=== PATIENT | male | born 1995 | race Caucasian/White ===

== ENCOUNTER 2023-12-22 15:41 | Outpatient (CLI) | payer OTHER, SELFPAY ==
--- OUTSIDE RECORDS SUMMARY | 2023-12-22 15:46 | XMS_ITS | Referral Summary ---
Author Organization [facility] Address [address] [place] [id number] Care Team Providers Care [place] Name Role Phone Elsy Ortega MD Primary Care Provider [phone]- [phone] Allergies Active Allergy Reactions Criticality Noted Date Comments Penicillins 04/22/2023 Medications No known medications Social History Tobacco Use Types Packs/Day Years Used Date Smoking Tobacco: Never Assessed Adolescent Education Answer Date Record ed Getting School Help Needed Not on file 04/22 Sex and Gender Information Value Date Recorded Sex Assigned at Not on file Gender Identity Not on file Sexual Orientation Not on file Last Filed Vital Signs Vital Sign Reading Time Taken Comments Blood Pressure 137/83 04/22/2023 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
--- OUTSIDE RECORDS SUMMARY | 2023-12-22 15:46 | XMS_ITS | Clinical Summary ---
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 Inhaled Oxygen Concentration - - Weight 106.1 kg (234 lb) 04/22/2023 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 Height - - Body Mass Index - - Plan of Treatment Health Maintenance Due Date Last Done Comments ADVANCE CARE PLANNING 1994 ANNUAL REVIEW OF HM ORDERS 1994 YEARLY PREVENTIVE VISIT 1994 HIV SCREENING 2009 HEPATITIS C SCREENING 2012 COVID-19 Vaccine ( season) 2022 10/25/2020, 08/17/2020 DTAP/TDAP/TD IMMUNIZATION (8 - Td or Tdap) 03/01/2023 03/01/2013, 08/15/2006, 10/09/1999, Additional history exists PHQ-2 (once per calendar year) 2023 INFLUENZA VACCINE (#1) 2024 1, 02/24/2020, 02/24/2020, Additional history exists MENINGITIS IMMUNIZATION Completed 03/01/2013 HEPATITIS B IMMUNIZATION Completed 014, 04/23/2013, 03/07/2013, Additional history exists IPV IMMUNIZATION Completed 12/10/2015, , 10/09/1999, Additional history exists HPV IMMUNIZATION Aged Out No longer e ligible based on patient's age to complete this topic Pneumococcal Vaccine: Pediatrics (0 to 5 Years) and At-Risk Patients (6 to 64 Years) Aged Out No longer eligible based on patient's age to complete this topic RSV MONOCLONAL ANTIBODY Aged Out No l onger eligible based on patient's age to complete this topic Care Teams Psychiatry Physician Relationship Specialty Start Date End Date Elsy Ortega MD [facility] [address] [place], [place] [id number] PCP - General Family Medicine 04/22/23
--- OUTSIDE RECORDS SUMMARY | 2023-12-22 15:46 | XMS_ITS | Continuity of Care Document ---
Author Name [facility] Organization [facility] Care Team Providers Care All Round Butcher Name Role Phone [facility] Unavailable Unavailable Problems Combined list of problems from Department of Defense and Veterans Affairs facilities. It does not include entries that were removed or entered in error. Problem Status Onset Date Problem Type Date of Resolution Comments Source ASSESSMENT, POST-DEPLOYMENT, DOCUMENTED ON [id number] Inactive 06/24/2019 Condition [facility] visit for: administrative purpose Inactive Condition [facility] Allergies, Adverse Reactions, Alerts Combined list of allergies from Department of Defense and Veterans Affairs facilities. It does not include entries that were removed or entered in error. Substance Category Reaction Severity Reaction type Status Date Reported Comments Source penicillins Propensity to adverse reactions to substance Rash or Itch Active 5 [facility] PENICILLINS {Cla } Drug allergy (disorder) Rash or Itch active 5 [facility] Immunizations Combined list of available immunizations from the Department of Defense and Veterans Affairs facilities. Immunization Series Date Given Administered By Site Reaction Lot Number CVX Code Drug Claims Examiner Status Comments Source influenza, injectable, quadrivalent- pf 2020 [id number] 150 GlaxoSmithKli ne complet ed influenza , injectabl e, quadrival ent-pf 03/22/21 Given Ambulat ory Pharmac y Influenza, injectable, quadrivalent, preservative free 1 2020 [id number] 150 SmithKline (SKB) complet ed Influenza , injectabl e, quadrival ent, preservat solomon free [facility] COVID Vaccine Moderna 2020 [id number] complet ed COVID Vaccine Moderna 10/25/20 Given Ambulat ory Pharmac y SARS-COV-2 (COVID-19) vaccine, mRNA, spike protein, LNP, preservative free, 100 mcg or 50 mcg dose 2 2020 [id number] 207 Moderna LetsWombat, Inc. (MOD) complet ed SARS-COV- 2 (COVID-19 ) vaccine, mRNA, spike protein, LNP, preservat solomon free, 100 mcg or 50 mcg dose DoD COVID Vaccine Moderna 2020 [id number] complet ed COVID Vaccine Moderna 08/17/20 Given Ambulat ory Pharmac y SARS-COV-2 (COVID-19) vaccine, mRNA, spike protein, LNP, preservative free, 100 mcg or 50 mcg dose 1 2020 [id number] 207 Moderna [employer]sWombat, Inc. (MOD) complet ed SARS-COV- 2 (COVID-19 ) vaccine, mRNA, spike protein, LNP, preservat solomon free, 100 mcg or 50 mcg dose DoD SARS-COV-2 (COVID-19) vaccine, mRNA, spike protein, LNP, preservative free, 100 mcg or 50 mcg dose 0 2020 207 () Not Given SARS-COV- 2 (COVID-19 ) vaccine, mRNA, spike protein, LNP, preservat solomon free, 100 mcg or 50 mcg dose DoD influenza virus vaccine, inactivated 2019 [id number] Seqirus complet ed influenza virus vaccine, inactivat ed 02/24/20 Given Ambulat ory Pharmac y Influenza, injectable, [place]in [place] Canine Kidney, quadrivalent with preservative 1 2019 [id number] 186 Seqirus (SEQ) comple t ed Influenza , injectabl e, [place]in [place] Canine Kidney, quadrival ent with preservat solomon DoD influenza, injectable, quadrivalent 2018 [id number] 158 Seqirus complet ed influenza , injectabl e, quadrival ent 04/04/19 Given Ambulat ory Pharmac y influenza, injectable, quadrivalent, contains preservative 7 2018 [id number] 158 Seqirus (SEQ) complet ed influenza , injectabl e, quadrival ent, contains preservat solomon DoD anthrax vaccine 2018 [id number] 24 Emergent Biosolutions complet ed anthrax vaccine 12/06/18 Given Ambulat ory Pharmac y anthrax vaccine 3 2018 [id number] 24 Emergent BioDefense Operations Adams (MIP) complet ed anthrax vaccine DoD influenza, injectable, quadrivalent- pf 2017 [id number] 150 CuriouslyKli mo complet ed influenza , injectabl e, quadrival ent-pf 03/19/18 Given Ambulat ory Pharmac y Influenza, injectable, quadrivalent, preservative free 1 2017 [id number] 150 SmithKline (SKB) complet ed Influenza , injectabl e, quadrival ent, preservat solomon free DoD typhoid Vi capsular polysaccharid e vac 2017 [id number] 101 sanofi pasteur complet ed typhoid Vi capsular polysacch aride vac 12/18/17 Given Ambulat ory Pharmac y yellow fever vaccine 2017 [id number] 37 sanofi pasteur complet ed yellow fever vaccine 12/18/17 Given Ambulat ory Pharmac y yellow fever vaccine 1 2017 [id number] 37 Sanofi Pasteur (PMC) complet ed yellow fever vaccine DoD typhoid Vi capsular polysaccharid e vaccine 2 2017 [id number] 101 Sanofi Pasteur (PMC) complet ed typhoid Vi capsular polysacch aride vaccine DoD influenza, injectable, quadrivalent 2016 [id number] 158 GlaxoSmithKli ne complet ed influenza , injectabl e, quadrival ent 04/02/17 Given Ambulat ory Pharmac y influenza, injectable, quadrivalent, contains preservative 5 2016 [id number] 158 SmithKline (SKB) complet ed influenza , injectabl e, quadrival ent, contains preservat solomon DoD influenza, seasonal, injectable-pf 2016 [id number] 140 Seqirus complet ed influenza , seasonal, injectabl e-pf 06/16/16 Given Ambulat ory Pharmac y Influenza, seasonal, injectable, preservative free 4 2016 [id number] 140 Seqirus (SEQ) comple t ed Influenza , seasonal, injectabl e, preservat solomon free DoD anthrax vaccine 2015 [id number] 24 Emergent Biosolutions complet ed anthrax vaccine 12/10/15 Given Ambulat ory Pharmac y poliovirus vaccine, inactivated 2015 [id number] 10 sanofi pasteur complet ed polioviru s vaccine, inactivat ed 12/10/15 Given Ambulat ory Pharmac y poliovirus vaccine, inactivated 2 2015 [id number] 10 Sanofi Pasteur (PMC) complet ed polioviru s vaccine, inactivat ed DoD anthrax vaccine 2 2015 [id number] 24 Emergent [employer] Adams ([facility]) complet ed anthrax vaccine DoD influenza, live, intranasal,qu adrivalent 2014 [id number] 149 Medimmune Inc comple t ed influenza , live, intranasa l,quadriv alent 03/10/15 Given Ambulat ory Pharmac y influenza, live, intranasal, quadrivalent 3 2014 [id number] 149 MODIZY.COMune, Inc. (MED) complet ed influenza , live, intranasa l, quadrival ent DoD typhoid Vi capsular polysaccharid e vac 2014 [id number] 101 sanofi pasteur complet ed typhoid Vi capsular polysacch aride vac 10/08/14 Given Ambulat ory Pharmac y anthrax vaccine 2014 [id number] 24 Emergent Biosolutions complet ed anthrax vaccine 10/08/14 Given Ambulat ory Pharmac y anthrax vaccine 1 2014 [id number] 24 Emergent [employer] Adams (MIP) complet ed anthrax vaccine DoD typhoid Vi capsular polysaccharid e vaccine 1 2014 [id number] 101 Sanofi Pasteur (PMC) complet ed typhoid Vi capsular polysacch aride vaccine DoD influenza, live, intranasal,qu adrivalent 2013 [id number] 149 Medimmune Inc comple t ed influenza , live, intranasa l,quadriv alent 02/06/14 Given Ambulat ory Pharmac y influenza, live, intranasal, quadrivalent 2 2013 [id number] 149 MedIWorld Reviewerune, Inc. (MED) complet ed influenza , live, intranasa l, quadrival ent DoD hepatitis A-hepatitis B vaccine 2013 [id number] 104 GlaxoSmithKli ne complet ed hepatitis A-hepatit is B vaccine 10/17/13 Given Ambulat ory Pharmac y hepatitis A and hepatitis B vaccine 3 2013 [id number] 104 [facility] (SKB) complet ed hepatitis A and hepatitis B vaccine DoD hepatitis A-hepatitis B vaccine 2012 [id number] 104 GlaxoSmithKli ne complet ed hepatitis A-hepatit is B vaccine 04/23/13 Given Ambulat ory Pharmac y measles/mumps /rubella virus vaccine 2012 [id number] 03 Merck & Company Inc complet ed measles/m umps/rube lla virus vaccine 04/23/13 Given Ambulat ory Pharmac y measles, mumps and rubella virus vaccine 2 2012 [id number] 03 Merck (MSD) complet ed measles, mumps and rubella virus vaccine DoD hepatitis A and hepatitis B vaccine 1 2012 [id number] 104 SmithKline (SKB) complet ed hepatitis A and hepatitis B vaccine DoD hepatitis A-hepatitis B vaccine 2012 [id number] 104 GlaxoSmithKli ne complet ed hepatitis A-hepatit is B vaccine 03/07/13 Given Ambulat ory Pharmac y measles/mumps /rubella virus vaccine 2012 [id number] 03 Merck & Company Inc complet ed measles/m umps/rube lla virus vaccine 03/07/13 Given Ambulat ory Pharmac y measles, mumps and rubella virus vaccine 1 2012 [id number] 03 Merck (MSD) complet ed measles, mumps and rubella virus vaccine DoD hepatitis A and hepatitis B vaccine 1 2012 [id number] 104 SmithKline (SKB) complet ed hepatitis A and hepatitis B vaccine DoD tuberculin purified protein derivative 2012 [id number] 96 [facility] complet ed tuberculi n purified protein derivativ e 03/01/13 Given Ambulat ory Pharmac y tetanus, diphtheria, acellular pertu is 2012 [id number] 115 GlaxoSmithKli mo complet ed tetanus, diphtheri a, acellular pertussis 03/01/13 Given Ambulat ory Pharmac y adenovirus vaccine, live 2012 [id number] 5 143 Teva Pharmaceutica complet ed adenoviru s vaccine, live 03/01/13 Given Ambulat ory Pharmac y influenza, seasonal, injectable-pf 2012 1342 [id number] 140 Novartis Pharmaceutica ls complet ed influenza , seasonal, injectabl e-pf 03/01/13 Given Ambulat ory Pharmac y meningococcal A,C,Y,W-135 (MCV4P) 2012 [id number] 114 sanofi pasteur complet ed meningoco ccal A,C,Y,W-1 35 (MCV4P) 03/01/13 Given Ambulat ory Pharmac y poliovirus vaccine, inactivated 2012 J1382 10 sanofi pasteur complet ed polioviru s vaccine, inactivat ed 03/01/13 Given Ambulat ory Pharmac y poliovirus vaccine, inactivated 1 2012 J1382 10 Sanofi Pasteur ([facility]) complet ed polioviru s vaccine, inactivat ed DoD meningococcal polysaccharid e (groups A, C, Y and W-135) diphtheria toxoid conjugate vaccine (MCV4P) 1 2012 [id number] 114 Sanofi Pasteur ([facility]) complet ed meningoco ccal polysacch aride (groups A, C, Y and W-135) diphtheri a toxoid conjugate vaccine (MCV4P) DoD tetanus toxoid, reduced diphtheria toxoid, and acellular pertu is vaccine, adsorbed 1 2012 [id number] 115 NeoPhotonics (SKB) complet ed tetanus toxoid, reduced diphtheri a toxoid, and acellular pertussis vaccine, adsorbed DoD Influenza, seasonal, injectable, preservative free 1 2012 1342 1P 140 Novartis Metaboli. (NOV) complet ed Influenza , seasonal, injectabl e, preservat solomon free DoD Adenovirus, type 4 and type 7, live, oral 1 2012 [id number] 5 143 Pinkdingo (BRR) complet ed Adenoviru s, type 4 and type 7, live, oral DoD mumps virus vaccine 0 2012 07 () Not Given mumps virus vaccine DoD varicella virus vaccine 0 2012 21 () Not Given varicella virus vaccine DoD Results Combined list of recent chemistry, hematology and other laboratory results from Department of Defense and Veterans Affairs, ranging from 15 months to all on record, depending upon the facility. Order Name Results Value Reference Range Date Interpretation Specimen Comments Source Infectio us Disease HIV-1/O/2 Non-Reac tive 1 (08/06/23 10:01 AM) 08/05 N Interpretiv e Data: INTERPRETAT ION: This method is a screening procedure for the detection of HIV p24 Antigen and Antibodies to HIV-1, including Group O, and/or HIV-2. NON-REACTIV E: HIV-1 antigen and HIV-1 / HIV-2 antibodies were not detected. No laboratory evidence of HIV infection. A negative test result does not exclude the possibility of exposure to or infection with HIV. HIV antibodies and/or p24 antigen may be undetectabl e in some stages of the infection and in some clinical conditions. If acute HIV infection is suspected, consider submitting another specimen to a reference laboratory for HIV-1 RNA. SCREEN REACTIVE - CONFIRMATIO N TO FOLLOW: Possible presence of HIV-1antibo dies, HIV-2 antibodies and/or HIV-1 p24 antigen. Specimen will reflex to the confirmatio n testing that fulfills the Center for Disease Control and Prevention' s HIV diagnostic algorithm. Refer to [facility] Lab Guide for additional information : [email or web address].[email or web address]/ [email or web address]/[email or web address]/EPIL ab/Pages/la b_guide.asp x Testing performed by Sania pineda. [facility] Miscella neo Sendouts Repository Sample Received (08/06/23 10:01 AM) 08/05 N Amb[facility] Pharmacy Encounters Combined list of: 1) Encounters from Department of Veterans Affairs facilities going back up to thelast 18 months. 2) Encounters from the Department of [facility] facilities going back up to 280 months. Location Location Details Encounter Type Encounter Number Reason For Visit Attending Provider ADM Date DC Date Status Disposition Source [facility]) TELE CONSULT [id number] Notes Entered by: VANESSA CARVER 31 May 2013 0757 ------- ------- ------- ------- -- VANESSA Mcneal 05/31 Referred for Appointment [facility]) [employer] [employer]([facility]) TELE CONSULT [id number] Notes Entered by: DEENA WEEKS 09 Aug 2013 1134 ------- ------- ------- ------- -- PRP ELLEN VILLAREAL 08/09 [employer] [employer]([facility]) [facility] [employer](Anna Marie chase New PHA Cell) OUTPATIENT [id number] Notes Entered by: NILESH LUCIO 23 Oct 2013 1421 ------- ------- ------- ------- -- PHA PART 1 [YELLOW ] NILESH LUCIO 10/23 Released w/o Limitations [employer](Lynn gonzales New PHA Cell) [facility](In and Out Nathalie Berg) TELE CONSULT [id number] Notes Entered by: ANASTASIA CASTRO 23 Oct 2013 1431 ------- ------- ------- ------- -- inpaige CAMPOS CONNIE K 10/23 [facility] Group(I n and Out Process ing [place]) [employer] [facility] [employer]([facility] Tm A-AD) OUTPATIENT [id number] JULIANA Barnhart 11/14 Released w/o Limitations [facility] Tm A-AD) [facility]) OUTPATIENT [id number] Notes Entered by: Roselyn HULL 23 Jan 2014 1427 ------- ------- ------- ------- -- MONO Morales am 01/23 Released w/o Limitations [facility]) [facility] Tm A-AD) OUTPATIENT [id number] sinus pressur e, sore throat, cough.. .....JULIANA Blanton 05/21 Released w/o Limitations [facility] Tm A-AD) [facility]) OUTPATIENT [id number] [facility]... .ACACIA Colin 09/26 Released w/o Limitations [facility]) [facility] Flight Medicine) OUTPATIENT [id number] Notes Entered by: VISHAL SUERO 08 Oct 2014 1004 ------- ------- ------- ------- -- VISHAL AJ 10/08 Released w/o Limitations [facility] Flight Medicin e) [facility]) OUTPATIENT [id number] Notes Entered by: Harjinder GELLER 02 Apr 2015 0741 ------- ------- ------- ------- -- PHA Part 1 (Red) SAM GELLER Ryanne 04/02 Released w/o Limitations [employer]([facility] New PHA Cell) [employer](Anna Marie [facility] Dply Hlth Assess) OUTPATIENT [id number] [facility] JANUSZ CATHERINE 06/23 Released w/o Limitations [employer]([facility] Dply Hlth Assess) [employer]([facility] Hearing Conservat ion) OUTPATIENT [id number] Notes Entered by: SERVANDO LINDSAY 20 Oct 2015 1440 ------- ------- ------- ------- -- Audiogr ANAMARIA Braswell 10/19 Released w/o Limitations [employer]([facility] Hearing Conserv ation) [employer]([facility] Dply Hlth Assess) OUTPATIENT [id number] [facility] URSULA SHELTON 12/08 Released w/o Limitations [employer]([facility] Dply Hlth Assess) [employer]([facility]) OUTPATIENT [id number] LULA FOLEY 12/18 Released w/o Limitations [employer] [facility]( [facility]) [employer](Bas e Operation s Medicine Cell) TELE CONSULT [id number] Notes Entered by: Priscilla JOHNS 26 Jan 2016 1201 ------- ------- ------- ------- -- Blackwell /Guard record review ROSA JOHNS 01/25 [employer](B ase Operati ons Medicin e Cell) [employer]([facility] lburt Hearing Conservat ion) OUTPATIENT [id number] Notes Entered by: Bowen BLANK 28 Jan 2016 1522 ------- ------- ------- ------- -- audiogr APOORVA Díaz 01/27 Released w/o Limitations [employer]([facility] Hearing Conserv ation) [employer](Bas e Operation s Medicine Cell) OUTPATIENT [id number] CHINO MEIER 02/25 Released w/o Limitations [employer](B ase Operati ons Medicin e Cell) [employer]([facility]) OUTPATIENT [id number] Notes Entered by: JULES DOBBINS 27 Feb 2016 0917 ------- ------- ------- ------- -- Lab results I_JEOVANNY VELARDE 02/26 Released w/o Limitations [employer]([facility] Flight Medicin e) [employer]([facility]) TELE CONSULT [id number] Notes Entered by: FAUSTO BAUTISTA 03 Mar 2016 0838 ------- ------- ------- ------- -- Lab results Dayan_JEOVANNY VELARDE 03/03 [employer]([facility] Flight Medicin e) [employer](Sub stance Abuse ([facility])) OUTPATIENT [id number] MARIAELENA pineda records review KADY PINO 12/29 Released w/o Limitations [employer](S ubstanc e Abuse ([facility]) ) [place] [address](AFN G 133 Med Sq-FM) OUTPATIENT [id number] Notes Entered by: NORA KRUEGER 28 Jun 2018 1218 ------- ------- ------- ------- -- LEFTY Jacinto 06/28 Released w/o Limitations [facility] [place] [address](A FNG 133 Med Sq-FM) [place] [address](AFN G 133 Med Sq-FM) OUTPATIENT [id number] Notes Entered by: DU FERNANDES 10 Jan 2019 0753 ------- ------- ------- ------- -- DHA1 CHAD LEI Ayala 01/10 Released w/o Limitations [facility] [place] [address](A FNG 133 Med Sq-FM) [facility] Facility OUTPATIENT [id number] Theater Provider 06/24 Released w/o Limitations [facility] [place] [place] [address](AFN G 133 Med Sq-FM) OUTPATIENT [id number] Notes Entered by: YOLANDE VEGA 06 Sep 2019 1031 ------- ------- ------- ------- -- Tri-Ser vice COLEMAN CHAD LEI Ayala 09/05 Released w/o Limitations [facility] [place] [address](A FNG 133 Med Sq-FM) [place] [address](AFN G 133 Med Sq-FM) OUTPATIENT [id number] Notes Entered by: DU FERNANDES 27 Nov 2019 1532 ------- ------- ------- ------- -- [facility], NOVEMBER 18 CHAD LEI Ayala 11/26 Released w/o Limitations [facility] [place] [address](A FNG 133 Med Sq-FM) [facility](Aud iology (Area B)) OUTPATIENT [id number] Notes Entered by: PHILIPPE HDZ 19 Jun 2020 1347 ------- ------- ------- ------- -- [facility] Record Review VISHAL SUH 06/19 Released w/o Limitations [facility](A udiolog y (Area B)) [place] [address](AFN G 133 Med Sq-FM) OUTPATIENT [id number] Notes Entered by: PATTY RICH 28 Jul 2021 0915 ------- ------- ------- ------- -- Tri-Ser vice COLEMAN NOEL TOLLIVER 07/28 Released w/o Limitations [facility] [place] [address](A FNG 133 Med Sq-FM) 8231R-[id number] MDG Outpatient [id number] MARIBEL CYRIRMA 08/05 Discharge Disposition: Home or Self Care 8231R-1 [id number] MDG 8231R-133 MDG Outside Documentat ion Only [id number] 09/04 Discharge Disposition: Home or Self Care 8231R-1 33 MDG Procedures Combined list of: 1) Procedures from Department of Veterans Affairs facilities going back up to thelast 18 months, not all VA non-surgical procedures are included; 2) All procedures from the Department of Defense facilities. Procedure Procedure Type Code Date Perfomer Comments Sourc e No data available for this section Ambulatory Pharmacy PSYCHIATRIC EVALUATION OF HOSPITAL RECORDS, OTHER PSYCHIATRIC REPORTS, PSYCHOMETRIC AND/OR PROJECTIVE TESTS, AND OTHER ACCUMULATED DATA FOR MEDICALDIAGNOSTIC PURPOSES 018 [facility] PSYCHIATRIC DIAGNOSTIC EVALUATION 014 [facility] TELE ASSESS & MGT SRV PROV QUAL NONPHYS HLTH CARE PRO TO EST PAT,PARENT,GUARD NOT ORIG REL ASSESS & MGT SRV PROV W/IN PREV 7 DAYS NOR LEAD ASSESS & MGT SRV/PX W/IN NXT 24 HR/SOON APT;5-10 MIN MED DIS 016 [facility] NEUROPSYCHOLOGICAL TESTING (EG, [place] CARD SORTING TEST), ADMINISTERED BY A COMPUTER, WITH QUALIFIED HEALTH ENTERPRISE INTEGRATION ARCHITECT INTERPRETATION AND REPORT 016 DoD PSYCHIATRIC EVALUATION OF HOSPITAL RECORDS, OTHER PSYCHIATRIC REPORTS, PSYCHOMETRIC AND/OR PROJECTIVE TESTS, AND OTHER ACCUMULATED DATA FOR MEDICALDIAGNOSTIC PURPOSES 016 [facility] NEUROPSYCHOLOGICAL TESTING (EG, [place] CARD SORTING TEST), ADMINISTERED BY A COMPUTER, WITH QUALIFIED HEALTH ENTERPRISE INTEGRATION ARCHITECT INTERPRETATION AND REPORT 015 DoD DISEASE MANAGEMENT PROGRAM; INITIAL ASSESSMENT AND INITIATION OF THE PROGRAM 014 [facility] THERAPEUTIC, PROPHYLACTIC, OR DIAGNOSTIC INJECTION (SPECIFY SUBSTANCE OR DRUG); SUBCUTANEOUS OR INTRAMUSCULAR 013 DoD Psychiatric Diagnostic Evaluation Review of Records and Reports Psychiatric Diagnostic Evaluation Review of Records and Reports [id number] KADY PINO [facility] Non-Physician Phone Call To Patient/Provider Brief (5-10min) Non-Physician Phone Call To Patient/Provider Brief (5-10min) [id number] JEOVANNY ROSSI [facility] Psychometric Neuropsych Testing Battery Admin By Computer Psychometric Neuropsych Testing Battery Admin By Computer [id number] LULA RON [facility] Psychiatric Diagnostic Evaluation Review of Records and Reports Psychiatric Diagnostic Evaluation Review of Records and Reports [id number] LILIANA AWAD [facility] Psychometric Neuropsych Testing Battery Admin By Computer Psychometric Neuropsych Testing Battery Admin By Computer [id number] ACACIA IYER [facility] Disease management program; initial a e ment and initiation of the program 014 ANASTASIA CASTRO [facility] Psychiatric Diagnostic Evaluation Psychiatric Diagnostic Evaluation [id number] CHRISTOPHER LENNON [facility] Psychologic Testing And Report Administered By Computer Psychologic Testing And Report Administered By Computer [id number] CHRISTOPHER LENNON [facility] Social History Combined list of available smoking, tobacco, and other social history from Department of Defense and Veterans Affairs facilities. Social History Type Response Date Comment Sourc e Male 08/06/2021 Ambulatory Pha rmacy Sexual Orientation Ambula tory Pharmacy Gender identity [facility] This section is an empty soc ial history section. [facility] Assessment and Plan Combined list of future care activities from Department of Defense and Veterans Affairs facilities (e.g., assessment and plan notes, appointments, orders, and referrals). Additional future care activities may be listed in the Plan of Care section. Result Assessment and Plan Date Source Assessment and Plan No data available for this section 12/22/2023 Ambulatory Pharmacy Functional Status Combined list of recent functional and cognitive assessments recorded at Department of Defense and Veterans Affairs (VA).VA Functional [place] Measurement (FIM) Scale: 1 = Total Assistance (Subject = 0% +), 2 = Maximal Assistance (Subject = 25% +), 3 = Moderate Assistance (Subject = 50% +), 4 = Minimal Assistance (Subject = 75% +), 5 = Supervision, 6 = Modified [place] (Device), 7 = Complete [place] (Timely, Safely). Assessment Date/Time Source Assessment Type Assessment Skill Assessment Score Assessment Details No data available for this section
--- NOTE | 2023-12-22 16:00 | CRLHL7_ITS ---
For Patients: As a result of the Century Cures Act, medical imaging exams and procedure reports are released immediately into your electronic medical record. You may view this report before your referring provider. If you have questions, please contact your health care provider. Indication: LOCALIZED SWELLING, MASS AND LUMP POST TRAUMA Technique: Cabrales scale and color doppler imaging of the left proximal calf soft tissues performed. Comparison: None Findings: Curvilinear collection of fluid located just beneath the skin measuring 5.2 x 0.4 x 4.3 cm. No suspicious vascularity or solid component. Impression: Small collection of subcutaneous fluid, likely blood products, measuring 5.2 x 0.4 x 4.3 cm. Dictated by Serg Herrera MD @ 12/23/2023 1:48:08 PM (Electronically Signed)
== END 2023-12-22 15:42 | disposition home or self-care (01) ==
LOC: US 15:44
PROVIDERS: PCP Emergency Medicine; Visit Provider Emergency Medicine
DX: R22.40 Localized swelling, mass and lump, unspecified lower limb (principal)
CPT/HCPCS: 76882

== ENCOUNTER 2024-12-09 19:07 | Emergency (ER) | payer OTHER, SELFPAY ==
--- OUTSIDE RECORDS SUMMARY | 2024-12-09 19:09 | XMS_ITS | Continuity of Care Document ---
Author Name [facility] Organization [facility] Care Team Providers Care Network Control Technician Name Role Phone [facility] Unavailable Unavailable Problems Combined list of problems from Department of Defense and Veterans Affairs facilities. It does not include entries that were removed or entered in error. Problem Status Onset Date Problem Type Date of Resolution Comments Source ASSESSMENT, POST-DEPLOYMENT, DOCUMENTED ON [id number] Inactive 06/24/2019 Condition [facility] visit for: administrative purpose Inactive Condition [facility] Allergies, Adverse Reactions, Alerts Combined list of allergies from Department of Defense and Veterans Affairs facilities. It does not include entries that were removed or entered in error. Substance Category Reaction Severity Reaction type Status Date Reported Comments Source penicillins Propensity to adverse reactions to substance Rash or Itch Active 5 Unknown Organizati on PENICILLINS {Cla } Drug allergy (disorder) Rash or Itch active 5 [employer] Immunizations Combined list of available immunizations from the Department of Defense and Veterans Affairs facilities. Immunization Series Date Given Administered By Site Reaction Lot Number CVX Code Drug Return To Service Inspector Status Comments Source influenza, injectable, quadrivalent- pf 2020 [id number] 150 GlaxoSmithKli ne complet ed influenza , injectabl e, quadrival ent-pf 03/22/21 Given Ambulat ory Pharmac y Influenza, injectable, quadrivalent, preservative free 1 2020 [id number] 150 SmithKline (SKB) complet ed Influenza , injectabl e, quadrival ent, preservat solomon free [facility] COVID Vaccine Moderna 2020 [id number] complet ed COVID Vaccine Moderna 10/25/20 Given Ambulat ory Pharmac y SARS-COV-2 (COVID-19) vaccine, mRNA, spike protein, LNP, preservative free, 100 mcg or 50 mcg dose 2 2020 [id number] 207 Moderna Funanga, Inc. (MOD) complet ed SARS-COV- 2 (COVID-19 ) vaccine, mRNA, spike protein, LNP, preservat solomon free, 100 mcg or 50 mcg dose DoD COVID Vaccine Moderna 2020 [id number] complet ed COVID Vaccine Moderna 08/17/20 Given Ambulat ory Pharmac y SARS-COV-2 (COVID-19) vaccine, mRNA, spike protein, LNP, preservative free, 100 mcg or 50 mcg dose 1 2020 [id number] 207 Moderna Funanga, Inc. (MOD) complet ed SARS-COV- 2 (COVID-19 [...] dose DoD influenza virus vaccine, inactivated 2019 [id number] Seqirus complet ed influenza virus vaccine, inactivat ed 02/24/20 Given Ambulat ory Pharmac y Influenza, injectable, Madin Dara Canine Kidney, quadrivalent with preservative 1 2019 [id number] Seqirus (SEQ) comple t ed Influenza , injectabl e, Madin Edgemont Canine Kidney, quadrival ent with preservat solomon DoD influenza, injectable, quadrivalent 2018 [id number] 158 Seqirus complet ed influenza , injectabl e, quadrival ent 04/04/19 Given Ambulat ory Pharmac y influenza, injectable, quadrivalent, contains preservative 7 2018 [id number] 158 Seqirus (SEQ) complet ed influenza , injectabl e, quadrival ent, contains preservat solomon DoD anthrax vaccine 2018 [id number] Emergent Biosolutions complet ed anthrax vaccine 12/06/18 Given Ambulat ory Pharmac y anthrax vaccine 3 2018 [id number] Emergent BioDefense Operations Duncan (MIP) complet ed anthrax vaccine DoD influenza, injectable, quadrivalent- pf 2017 [id number] 150 JellycoasterKli wy complet ed influenza , injectabl e, quadrival ent-pf 03/19/18 Given Ambulat ory Pharmac y Influenza, injectable, quadrivalent, preservative free 1 2017 [id number] 150 SmithKline (SKB) complet ed Influenza , injectabl e, quadrival ent, preservat solomon free DoD typhoid Vi capsular polysaccharid e vac 2017 [id number] sanofi pasteur complet ed typhoid Vi capsular polysacch aride vac 12/18/17 Given Ambulat ory Pharmac y yellow fever vaccine 2017 [id number] sanofi pasteur complet ed yellow fever vaccine 12/18/17 Given Ambulat ory Pharmac y yellow fever vaccine 1 2017 [id number] 37 Sanofi Pasteur (PMC) complet ed yellow fever vaccine DoD typhoid Vi capsular polysaccharid e vaccine 2 2017 [id number] 101 Sanofi Pasteur (PMC) complet ed typhoid Vi capsular polysacch aride vaccine DoD influenza, injectable, quadrivalent 2016 [id number] 158 GlaxoSmithKli ne complet ed influenza , injectabl e, quadrival ent 04/02/17 Given Ambulat ory Pharmac y influenza, injectable, quadrivalent, contains preservative 5 2016 [id number] 158 SmithKline (SKB) complet ed influenza , injectabl e, quadrival ent, contains preservat solomon DoD influenza, seasonal, injectable-pf 2016 [id number] 140 Seqirus complet ed influenza , seasonal, injectabl e-pf 06/16/16 Given Ambulat ory Pharmac y Influenza, seasonal, injectable, preservative free 4 2016 [id number] 140 Seqirus (SEQ) comple t ed Influenza , seasonal, injectabl e, preservat solomon free DoD anthrax vaccine 2015 [id number] 24 Emergent Biosolutions complet ed anthrax vaccine 12/10/15 Given Ambulat ory Pharmac y poliovirus vaccine, inactivated 2015 [id number] 10 sanofi pasteur complet ed polioviru s vaccine, inactivat ed 12/10/15 Given Ambulat ory Pharmac y poliovirus vaccine, inactivated 2 2015 [id number] 10 Sanofi Pasteur (PMC) complet ed polioviru s vaccine, inactivat ed DoD anthrax vaccine 2 2015 [id number] 24 Emergent [employer] Duncan ([facility]) complet ed anthrax vaccine DoD influenza, live, intranasal,qu adrivalent 2014 [id number] 149 Medimmune Inc comple t ed influenza , live, intranasa l,quadriv alent 03/10/15 Given Ambulat ory Pharmac y influenza, live, intranasal, quadrivalent 3 2014 [id number] 149 MedIAxiomaticsune, Inc. (MED) complet ed influenza , live, intranasa l, quadrival ent DoD typhoid Vi capsular polysaccharid e vac 2014 [id number] 101 sanofi pasteur complet ed typhoid Vi capsular polysacch aride vac 10/08/14 Given Ambulat ory Pharmac y anthrax vaccine 2014 [id number] 24 Emergent Biosolutions complet ed anthrax vaccine 10/08/14 Given Ambulat ory Pharmac y anthrax vaccine 1 2014 [id number] 24 Emergent [employer] Duncan ([facility]) complet ed anthrax vaccine DoD typhoid Vi capsular polysaccharid e vaccine 1 2014 [id number] 101 Sanofi Pasteur ([facility]) complet ed typhoid Vi capsular polysacch aride vaccine DoD influenza, live, intranasal,qu adrivalent 2013 [id number] 149 Medimmune Inc comple t ed influenza , live, intranasa l,quadriv alent 02/06/14 Given Ambulat ory Pharmac y influenza, live, intranasal, quadrivalent 2 2013 [id number] 149 MedIAxiomaticsune, Inc. (MED) complet ed influenza , live, intranasa l, quadrival ent DoD hepatitis A-hepatitis B vaccine 2013 [id number] 104 GlaxoSmithKli ne complet ed hepatitis A-hepatit is B vaccine 10/17/13 Given Ambulat ory Pharmac y hepatitis A and hepatitis B vaccine 3 2013 [id number] 104 [facility] (SKB) complet ed hepatitis A and hepatitis B vaccine DoD hepatitis A-hepatitis B vaccine 2012 [id number] 104 GlaxoSmithKli ne complet ed hepatitis A-hepatit is B vaccine 04/23/13 Given Ambulat ory Pharmac y measles/mumps /rubella virus vaccine 2012 [id number] 03 Merck & Company Inc complet ed measles/m umps/rube lla virus vaccine 04/23/13 Given Ambulat ory Pharmac y measles, mumps and rubella virus vaccine 2 2012 [id number] 03 Merck (MSD) complet ed measles, mumps and rubella virus vaccine DoD hepatitis A and hepatitis B vaccine 1 2012 [id number] 104 SmithKline (SKB) complet ed hepatitis A and hepatitis B vaccine DoD hepatitis A-hepatitis B vaccine 2012 [id number] 104 GlaxoSmithKli ne complet ed hepatitis A-hepatit is B vaccine 03/07/13 Given Ambulat ory Pharmac y measles/mumps /rubella virus vaccine 2012 [id number] 03 Merck & Company Inc complet ed measles/m umps/rube lla virus vaccine 03/07/13 Given Ambulat ory Pharmac y measles, mumps and rubella virus vaccine 1 2012 [id number] 03 Merck (MSD) complet ed measles, mumps and rubella virus vaccine DoD hepatitis A and hepatitis B vaccine 1 2012 [id number] 104 SmithKline (SKB) complet ed hepatitis A and hepatitis B vaccine DoD tuberculin purified protein derivative 2012 [id number] 96 [facility] complet ed tuberculi n purified protein derivativ e 03/01/13 Given Ambulat ory Pharmac y tetanus, diphtheria, acellular pertu is 2012 [id number] 115 GlaxoSmithKli ne complet ed tetanus, diphtheri a, acellular pertussis 03/01/13 Given Ambulat ory Pharmac y adenovirus vaccine, live 2012 [id number] 5 143 Teva Pharmaceutica ls complet ed adenoviru s vaccine, live 03/01/13 Given Ambulat ory Pharmac y influenza, seasonal, injectable-pf 2012 [id number] 140 Novartis Pharmaceutica ls complet ed influenza , seasonal, injectabl e-pf 03/01/13 Given Ambulat ory Pharmac y meningococcal A,C,Y,W-135 (MCV4P) 2012 [id number] 114 sanofi pasteur complet ed meningoco ccal A,C,Y,W-1 35 (MCV4P) 03/01/13 Given Ambulat ory Pharmac y poliovirus vaccine, inactivated 2012 J1382 10 sanofi pasteur complet ed polioviru s vaccine, inactivat ed 03/01/13 Given Ambulat ory Pharmac y poliovirus vaccine, inactivated 1 2012 J1382 10 Sanofi Pasteur (PMC) complet ed polioviru s vaccine, inactivat ed DoD meningococcal polysaccharid e (groups A, C, Y and W-135) diphtheria toxoid conjugate vaccine (MCV4P) 1 2012 [id number] 114 Sanofi Pasteur ([facility]) complet ed meningoco ccal polysacch aride (groups A, C, Y and W-135) diphtheri a toxoid conjugate vaccine (MCV4P) DoD tetanus toxoid, reduced diphtheria toxoid, and acellular pertu is vaccine, adsorbed 1 2012 [id number] 115 Curaxis Pharmaceutical (SKB) complet ed tetanus toxoid, reduced diphtheri a toxoid, and acellular pertussis vaccine, adsorbed DoD Influenza, seasonal, injectable, preservative free 1 2012 [id number] 140 Novartis Feedsky. (NOV) complet ed Influenza , seasonal, injectabl e, preservat solomon free DoD Adenovirus, type 4 and type 7, live, oral 1 2012 [id number] 5 143 [employer] (BRR) complet ed Adenoviru s, type 4 [...] Reference Range Date Interpretation Specimen Comments Source Infectiou s Disease HIV-1/O/2 Non-Reac tive 1 (08/06/23 10:01 [...] Prevention' s HIV diagnostic algorithm. Refer to [facility] Lab Guide for additional information : [email or web address]/ [email or web address] x Testing performed by Sania espino [address] [place] EPILAB Miscellan eous Sendouts Repository Sample Received (08/06/23 10:01 AM) 08/05 N [address] [facility] EPILAB Encounters Combined list of: 1) Encounters from Department of [facility] Affairs facilities going backup to the last 18 months, not all [place] inpatient encounters are included; 2) Encounters from the Department of Defense facilities going backup to 280 months. Location Location Details Encounter Type Encounter Number Reason For Visit Attending Provider ADM Date DC Date Status Disposition Source [facility]) TELE CONSULT [id number] Notes Entered by: VANESSA CARVER 31 May 2013 0757 ------- ------- ------- ------- -- VANESSA Mcneal 05/31 Referred for Appointment [facility]) [facility]) TELE CONSULT [id number] Notes Entered by: DEENA WEEKS 09 Aug 2013 1134 ------- ------- ------- ------- -- PRP ELLEN VILLAREAL 08/09 [facility]) [facility] Cell) OUTPATIENT [id number] Notes Entered by: NILESH LUCIO 23 Oct 2013 1421 ------- ------- ------- ------- -- PHA PART 1 [YELLOW ] NILESH LUCIO 10/23 Released w/o Limitations [facility] New PHA Cell) [facility](In and Out Processin g [place]) TELE CONSULT [id number] Notes Entered by: ANASTASIA CASTRO 23 Oct 2013 1431 ------- ------- ------- ------- -- inproce ss CONNIE CAMPOS 10/23 [facility](I n and Out Process ing [place]) [facility] OUTPATIENT [id number] JULIANA Barnhart 11/14 Released w/o Limitations [facility] Tm A-AD) [facility]) OUTPATIENT [id number] Notes Entered by: Roselyn HULL 23 Jan 2014 1427 ------- ------- ------- ------- -- ReferMONO Rodriguez am 01/23 Released w/o Limitations [facility]) [facility] Tm A-AD) OUTPATIENT [id number] sinus pressur e, sore throat, cough.. .....JULIANA Blanton 05/21 Released w/o Limitations [facility] Tm A-AD) [facility]) OUTPATIENT [id number] krishna... .ACACIA Colin 09/26 Released w/o Limitations [facility]) [facility]) OUTPATIENT [id number] Notes Entered by: VISHAL SUERO 08 Oct 2014 1004 ------- ------- ------- ------- -- DHA1 VISHAL SUERO 10/08 Released w/o Limitations [facility]( [place] [facility]) [facility](Anna Marie rena New PHA Cell) OUTPATIENT [id number] Notes Entered by: Harjinder GELLER 02 Apr 2015 0741 ------- ------- ------- ------- -- PHA Part 1 (Red) SAM GELLER 04/02 Released w/o Limitations [facility] [employer] [facility] New PHA Cell) [facility] Assess) OUTPATIENT [id number] [facility] JANUSZ CATHERINE 06/23 Released w/o Limitations [employer]([facility] Dply Hl[facility] Assess) [employer]([facility]urt Hearing Conservat ion) OUTPATIENT [id number] Notes Entered by: SERVANDO LINDSAY 20 Oct 2015 1440 ------- ------- ------- ------- -- Audiogr am ANAMARIA LINDSAY 10/19 Released w/o Limitations [employer]([facility] Hearing Conserv ation) [facility]) OUTPATIENT [id number] [facility] URSULA SHELTON 12/08 Released w/o Limitations [employer]([facility] Dply Hlth Assess) [facility]) OUTPATIENT [id number] LULA FOLEY 12/18 Released w/o Limitations [employer]([facility]) [facility](Bas e Operation s Medicine Cell) TELE CONSULT [id number] Notes Entered by: Priscilla JOHNS 26 Jan 2016 1201 ------- ------- ------- ------- -- [place] /Guard record review ROSA JOHNS 01/25 [employer](B ase Operati ons Medicin e Cell) [employer]([facility] Hearing Conservat ion) OUTPATIENT [id number] Notes Entered by: Bowen BLANK 28 Jan 2016 1522 ------- ------- ------- ------- -- audiogr APOORVA Díaz 01/27 Released w/o Limitations [employer] [facility] ation) [employer](Bas e Operation s Medicine Cell) OUTPATIENT [id number] CHINO MEIER 02/25 Released w/o Limitations [employer](B ase Operati ons Medicin e Cell) [employer]([facility]) OUTPATIENT [id number] Notes Entered by: JULES DOBBINS 27 Feb 2016 0917 ------- ------- ------- ------- -- Lab results I_JEOVANNY VELARDE 02/26 Released w/o Limitations [employer]([facility] Flight Medicin e) [facility] [employer]([facility]) TELE CONSULT [id number] Notes Entered by: FAUSTO BAUTISTA 03 Mar 2016 0838 ------- ------- ------- ------- -- Lab results JEOVANNY CARPIO 03/03 [employer] [facility] Flight Medicin e) [employer](Sub stance Abuse ([facility] Funded)) OUTPATIENT [id number] MARIAELENA pineda records review KADY PINO 12/29 Released w/o Limitations [employer](S ubstanc e Abuse ([facility]) ) [facility] [place] [address](AFN G 133 Med Sq-FM) OUTPATIENT [id number] Notes Entered by: NORA KRUEGER 28 Jun 2018 1218 ------- ------- ------- ------- -- LEFTY Jacinto 06/28 Released w/o Limitations [facility] [place] [address](A FNG 133 Med Sq-FM) [facility] [place] [address](AFN G 133 Med Sq-FM) OUTPATIENT [id number] Notes Entered by: DU FERNANDES 10 Jan 2019 0753 ------- ------- ------- ------- -- DHA1 CHAD LEI Ayala 01/10 Released w/o Limitations [facility] [place] [address](A FNG 133 Med Sq-FM) Theater Facility OUTPATIENT [id number] Theater Provider 06/24 Released w/o Limitations Theater Facilit y [facility] [place] [address](AFN G 133 Med Sq-FM) OUTPATIENT [id number] Notes Entered by: YOLANDE VEGA 06 Sep 2019 1031 ------- ------- ------- ------- -- Paul COLEMAN CHAD LEI Ayala 09/05 Released w/o Limitations [facility] [place] [address](A FNG 133 Med Sq-FM) [facility] [place] [address](AFN G 133 Med Sq-FM) OUTPATIENT [id number] Notes Entered by: DU FERNANDES 27 Nov 2019 1532 ------- ------- ------- ------- -- [facility], NOVEMBER 18 DO CHAD Cai 11/26 Released w/o Limitations [facility] [place] [address](A FNG 133 Med Sq-FM) [facility](Aud iology (Area B)) OUTPATIENT [id number] Notes Entered by: PHILIPPE HDZ 19 Jun 2020 1347 ------- ------- ------- ------- -- [facility] Record Review VISHAL SUH 06/19 Released w/o Limitations [facility](A udiolog y (Area B)) [facility] [place] [address](AFN G 133 Med Sq-FM) OUTPATIENT [id number] Notes Entered by: PATTY RICH 28 Jul 2021 0915 ------- ------- ------- ------- -- Tri-Ser vice COLEMAN NOEL TOLLIVER Harjinder 07/28 Released w/o Limitations [facility] [place] [address](A FNG 133 Med Sq-FM) Procedures Combined list of: 1) Procedures from Department of Veterans Affairs facilities going back up to [facility] 18 months, not all VA non-surgical procedures are included; 2) All procedures from the Department of Defense facilities. Procedure Procedure Type Code Date Perfomer Comments Sourc e No data available for this section [facility] Pharmacy Psychiatric Evaluation Review of Records and Reports Psychiatric Evaluation Review of Records and Reports [id number] KADY PINO [facility] Non-Physician Phone Call To Patient/Provider Brief (5-10min) Non-Physician Phone Call To Patient/Provider Brief (5-10min) [id number] JEOVANNY ARNETT DoD Psychometric Neuropsych Testing Battery Admin By Computer Psychometric Neuropsych Testing Battery Admin By Computer [id number] LULA RON DoD Psychiatric Evaluation Review of Records and Reports Psychiatric Evaluation Review of Records and Reports 24417 6 LILIANA AWAD DoD Psychometric Neuropsych Testing Battery Admin By Computer Psychometric Neuropsych Testing Battery Admin By Computer 25275 5 ACACIA IYER [facility] Disease management program; initial a e ment and initiation of the program 4 ANASTASIA CASTRO DoD Psychiatric Evaluation Psychiatric Evaluation 61930 4 CHRISTOPHER LENNON [facility] Psychologic Testing And Report Administered By Computer Psychologic Testing And Report Administered By Computer [id number] 4 CHRISTOPHER LENNON [facility] Social History Combined list of available smoking, tobacco, and other social history from Department of Defense and Veterans Affairs facilities. Social History Type Response Date Comment Sourc e Sex Representation Male (finding) 08/06/2021 Un known Organization Sexual Orientation Ambula tory Pharmacy Gender identity Ambulator y Pharmacy This section is an empty social history section. DoD Assessment and Plan Combined list of future care activities from Department of Defense and Veterans Affairs facilities (e.g., assessment and plan notes, appointments, orders, and referrals). Additional future care activities may be listed in the Plan of Care section. Result Assessment and Plan Date Source Assessment and Plan No data available for this section 12/10/2024 Ambulatory Pharmacy Functional Status Combined list of recent functional and cognitive assessments recorded at Department of Defense and Veterans Affairs (VA).VA Functional Crawford Measurement (FIM) Scale: 1 = Total Assistance (Subject = 0% +), 2 = Maximal Assistance (Subject = 25% +), 3 = Moderate Assistance (Subject = 50% +), 4 = Minimal Assistance (Subject = 75% +), 5 = Supervision, 6 = Modified Crawford (Device), 7 = Complete Crawford (Timely, Safely). Assessment Date/Time Source Assessment Type Assessment Skill Assessment Score Assessment Details No data available for this section
--- OUTSIDE RECORDS SUMMARY | 2024-12-09 19:09 | XMS_ITS | Continuity of Care Document ---
Author Name [facility] Organization [facility] Care Team Providers Care Fence Post Driver Name Role Phone [facility] Unavailable Unavailable Problems Combined list of problems from Department of Defense and Veterans Affairs facilities. It does not include entries that were removed or entered in error. Problem Status Onset Date Problem Type Date of Resolution Comments Source ASSESSMENT, POST-DEPLOYMENT, DOCUMENTED ON [id number] Inactive 06/24/2019 Condition [facility] visit for: administrative purpose Inactive Condition [facility] Allergies, Adverse Reactions, Alerts Combined list of [...] Site Reaction Lot Number CVX Code Drug Charter And Tour Bus Driver Status Comments Source influenza, injectable, quadrivalent- pf 2020 [id number] 150 GlaxoSmithKli ne complet ed influenza , injectabl e, quadrival ent-pf 03/22/21 Given Ambulat ory Pharmac y Influenza, injectable, quadrivalent, preservative free 1 2020 [id number] 150 SmithKline (SKB) complet ed Influenza , injectabl e, quadrival ent, preservat solomon free [facility] COVID Vaccine Moderna 2020 [id number] complet ed COVID Vaccine Moderna 10/25/20 Given Ambulat ory Pharmac y SARS-COV-2 (COVID-19) vaccine, mRNA, spike protein, LNP, preservative free, 100 mcg or 50 mcg dose 2 2020 [id number] 207 Moderna Nezasa, Inc. (MOD) complet ed SARS-COV- 2 (COVID-19 ) vaccine, mRNA, spike protein, LNP, preservat solomon free, 100 mcg or 50 mcg dose DoD COVID Vaccine Moderna 2020 [id number] 207 complet ed COVID Vaccine Moderna 08/17/20 Given Ambulat ory Pharmac y SARS-COV-2 (COVID-19) vaccine, mRNA, spike protein, LNP, preservative free, 100 mcg or 50 mcg dose 1 2020 [id number] 207 Moderna Nezasa, Inc. (MOD) complet ed SARS-COV- 2 (COVID-19 [...] dose DoD influenza virus vaccine, inactivated 2019 [id number] Seqirus complet ed influenza virus vaccine, inactivat ed 02/24/20 Given Ambulat ory Pharmac y Influenza, injectable, Madin Dara Canine Kidney, quadrivalent with preservative 1 2019 [id number] 186 Seqirus (SEQ) comple t ed Influenza , injectabl e, Madin Bicknell Canine Kidney, quadrival ent with preservat solomon DoD influenza, injectable, quadrivalent 2018 [id number] 158 Seqirus complet ed influenza , injectabl e, quadrival ent 04/04/19 Given Ambulat ory Pharmac y influenza, injectable, quadrivalent, contains preservative 7 2018 [id number] 158 Seqirus (SEQ) complet ed influenza , injectabl e, quadrival ent, contains preservat solomon DoD anthrax vaccine 2018 [id number] Emergent Biosolutions complet ed anthrax vaccine 12/06/18 Given Ambulat ory Pharmac y anthrax vaccine 3 2018 [id number] 24 Emergent BioDefense Operations [place] (MIP) complet ed anthrax vaccine DoD influenza, injectable, quadrivalent- pf 2017 [id number] 150 Prime ConnectionsKli ks complet ed influenza , injectabl e, quadrival ent-pf 03/19/18 Given Ambulat ory Pharmac y Influenza, injectable, quadrivalent, preservative free 1 2017 [id number] 150 SmithKline (SKB) complet ed Influenza , injectabl e, quadrival ent, preservat solomon free DoD typhoid Vi capsular polysaccharid e vac 2017 [id number] sanofi pasteur complet ed typhoid Vi capsular polysacch aride vac 12/18/17 Given Ambulat ory Pharmac y yellow fever vaccine 2017 [id number] 37 sanofi pasteur complet ed yellow fever vaccine 12/18/17 Given Ambulat ory Pharmac y yellow fever vaccine 1 2017 [id number] 37 Sanofi Pasteur (PMC) complet ed yellow fever vaccine DoD typhoid Vi capsular polysaccharid e vaccine 2 2017 [id number] 101 Sanofi Pasteur (PMC) complet ed typhoid Vi capsular polysacch aride vaccine DoD influenza, injectable, quadrivalent 2016 [id number] 158 GlaxoSmithKli ne complet ed influenza , injectabl e, quadrival ent 04/02/17 Given Ambulat ory Pharmac y influenza, injectable, quadrivalent, contains preservative 5 2016 [id number] 158 SmithKline (SKB) complet ed influenza , injectabl e, quadrival ent, contains preservat solomon DoD influenza, seasonal, injectable-pf 2016 [id number] 140 Seqirus complet ed influenza , seasonal, injectabl e-pf 06/16/16 Given Ambulat ory Pharmac y Influenza, seasonal, injectable, preservative free 4 2016 [id number] 140 Seqirus (SEQ) comple t ed Influenza , seasonal, injectabl e, preservat solomon free DoD anthrax vaccine 2015 [id number] 24 Emergent Biosolutions complet ed anthrax vaccine 12/10/15 Given Ambulat ory Pharmac y poliovirus vaccine, inactivated 2015 [id number] 10 sanofi pasteur complet ed polioviru s vaccine, inactivat ed 12/10/15 Given Ambulat ory Pharmac y poliovirus vaccine, inactivated 2 2015 [id number] 10 Sanofi Pasteur (PMC) complet ed polioviru s vaccine, inactivat ed DoD anthrax vaccine 2 2015 [id number] 24 [employer]gent [employer] [place] ([facility]) complet ed anthrax vaccine DoD influenza, live, intranasal,qu adrivalent 2014 [id number] 149 Medimmune Inc comple t ed influenza , live, intranasa l,quadriv alent 03/10/15 Given Ambulat ory Pharmac y influenza, live, intranasal, quadrivalent 3 2014 [id number] 149 MedIZaelabune, Inc. (MED) complet ed influenza , live, intranasa l, quadrival ent DoD typhoid Vi capsular polysaccharid e vac 2014 [id number] 101 sanofi pasteur complet ed typhoid Vi capsular polysacch aride vac 10/08/14 Given Ambulat ory Pharmac y anthrax vaccine 2014 [id number] 24 Emergent Biosolutions complet ed anthrax vaccine 10/08/14 Given Ambulat ory Pharmac y anthrax vaccine 1 2014 [id number] 24 [employer] [place] ([facility]) complet ed anthrax vaccine DoD typhoid Vi capsular polysaccharid e vaccine 1 2014 [id number] 101 Sanofi Pasteur ([facility]) complet ed typhoid Vi capsular polysacch aride vaccine DoD influenza, live, intranasal,qu adrivalent 2013 [id number] 149 Medimmune Inc comple t ed influenza , live, intranasa l,quadriv alent 02/06/14 Given Ambulat ory Pharmac y influenza, live, intranasal, quadrivalent 2 2013 [id number] 149 MedIZaelabune, Inc. (MED) complet ed influenza , live, intranasa l, quadrival ent DoD hepatitis A-hepatitis B vaccine 2013 [id number] 104 GlaxoSmithKli ne complet ed hepatitis A-hepatit is B vaccine 10/17/13 Given Ambulat ory Pharmac y hepatitis A and hepatitis B vaccine 3 2013 [id number] 104 [facility] (SKB) complet ed hepatitis A and hepatitis B vaccine DoD hepatitis A-hepatitis B vaccine 2012 [id number] 104 GlaxoSmithKli ne complet ed hepatitis A-hepatit is B vaccine 04/23/13 Given Ambulat ory Pharmac y measles/mumps /rubella virus vaccine 2012 [id number] 03 Merck & Company Inc complet ed measles/m umps/rube lla virus vaccine 04/23/13 Given Ambulat ory Pharmac y measles, mumps and rubella virus vaccine 2 2012 [id number] 03 Merck (MSD) complet ed measles, mumps and rubella virus vaccine DoD hepatitis A and hepatitis B vaccine 1 2012 [id number] 104 SmithKline (SKB) complet ed hepatitis A and hepatitis B vaccine DoD hepatitis A-hepatitis B vaccine 2012 [id number] 104 GlaxoSmithKli ne complet ed hepatitis A-hepatit is B vaccine 03/07/13 Given Ambulat ory Pharmac y measles/mumps /rubella virus vaccine 2012 [id number] 03 Merck & Company Inc complet ed measles/m umps/rube lla virus vaccine 03/07/13 Given Ambulat ory Pharmac y measles, mumps and rubella virus vaccine 1 2012 [id number] 03 Merck (MSD) complet ed measles, mumps and rubella virus vaccine DoD hepatitis A and hepatitis B vaccine 1 2012 [id number] 104 SmithKline (SKB) complet ed hepatitis A and hepatitis B vaccine DoD tuberculin purified protein derivative 2012 [id number] 96 [facility] complet ed tuberculi n purified protein derivativ e 03/01/13 Given Ambulat ory Pharmac y tetanus, diphtheria, acellular pertu is 2012 [id number] 115 GlaxoSmithKli ne complet ed tetanus, diphtheri a, acellular pertussis 03/01/13 Given Ambulat ory Pharmac y adenovirus vaccine, live 2012 [id number] 5 143 Teva Pharmaceutica ls complet ed adenoviru s vaccine, live 03/01/13 Given Ambulat ory Pharmac y influenza, seasonal, injectable-pf 2012 1342 1P 140 Novartis Pharmaceutica ls complet ed influenza , seasonal, injectabl e-pf 03/01/13 Given Ambulat ory Pharmac y meningococcal A,C,Y,W-135 (MCV4P) 2012 [id number] 114 sanofi pasteur complet ed meningoco ccal [...] diphtheria toxoid conjugate vaccine (MCV4P) 1 2012 [id number] 114 Sanofi Pasteur ([facility]) complet ed meningoco ccal polysacch aride (groups A, C, Y and W-135) diphtheri a toxoid conjugate vaccine (MCV4P) DoD tetanus toxoid, reduced diphtheria toxoid, and acellular pertu is vaccine, adsorbed 1 2012 [id number] 115 EndoDex (SKB) complet ed tetanus toxoid, reduced diphtheri a toxoid, and acellular pertussis vaccine, adsorbed DoD Influenza, seasonal, injectable, preservative free 1 2012 1342 1P 140 Novartis Piqqual. (NOV) complet ed Influenza , seasonal, injectabl e, preservat solomon free DoD Adenovirus, type 4 and type 7, live, oral 1 2012 [id number] 5 143 Sokrati (BRR) complet ed Adenoviru s, type 4 [...] Prevention' s HIV diagnostic algorithm. Refer to [facility] Lab Guide for additional information : [email or web address]/ [email or web address] x Testing performed by Sania espino [employer]00[employer] EPILAB Miscellan eous Sendouts Repository Sample Received (08/06/23 10:01 AM) 08/05 N 5600A[employer]U [employer] EPILAB Encounters Combined list of: 1) Encounters from Department of [facility] Affairs facilities going backup to the last 18 months, not all [place] inpatient encounters are included; 2) Encounters from the Department of Defense facilities going backup to 280 months. Location Location Details Encounter Type Encounter Number Reason For Visit Attending Provider ADM Date DC Date Status Disposition Source [facility]) TELE CONSULT [id number] Notes Entered by: VANESSA CARVER 31 May 2013 0757 ------- ------- ------- ------- -- VANESSA Mcneal 05/31 Referred for Appointment [facility]) [facility]) TELE CONSULT [id number] Notes Entered by: DEENA WEEKS 09 Aug 2013 1134 ------- ------- ------- ------- -- PRP ELLEN VILLAREAL 08/09 [facility]) [facility] Cell) OUTPATIENT [id number] Notes Entered by: NILESH LUCIO 23 Oct 2013 1421 ------- ------- ------- ------- -- PHA PART 1 [YELLOW ] NILESH LUCIO 10/23 Released w/o Limitations [facility](H urlburt New PHA Cell) [facility](In and Out Processin g [place]) TELE CONSULT [id number] Notes Entered by: ANASTASIA CASTRO 23 Oct 2013 1431 ------- ------- ------- ------- -- inproce ss CONNIE CAMPOS 10/23 [facility](I n and Out Process ing [place]) [facility] OUTPATIENT [id number] JULIANA Barnhart 11/14 Released w/o Limitations [facility](W arrior Op Med Clinic Tm A-AD) [facility]) OUTPATIENT [id number] Notes Entered by: Roselyn HULL 23 Jan 2014 1427 ------- ------- ------- ------- -- ReferMONO Rodriguez am 01/23 Released w/o Limitations [facility]) [facility] Tm A-AD) OUTPATIENT [id number] sinus pressur e, sore throat, cough.. .....JULIANA Blanton 05/21 Released w/o Limitations [facility] Tm A-AD) [facility]) OUTPATIENT [id number] krishna... .ACACIA Colin 09/26 Released w/o Limitations [facility]) [facility]) OUTPATIENT [id number] Notes Entered by: VISHAL SUERO 08 Oct 2014 1004 ------- ------- ------- ------- -- DHA1 VISHAL SUERO 10/08 Released w/o Limitations [facility]( [employer] Flight Medicin e) [facility](Anna Marie rena New PHA Cell) OUTPATIENT [id number] Notes Entered by: Harjinder GELLER 02 Apr 2015 0741 ------- ------- ------- ------- -- PHA Part 1 (Red) SAM GELLER 04/02 Released w/o Limitations [facility] [employer] [facility](H [facility]burt New PHA Cell) [facility](Anna Marie lbannabella Dply Hlth Assess) OUTPATIENT [id number] [facility] JANUSZ CATHERINE 06/23 Released w/o Limitations [employer] [employer](H urlburt Dply Hlth Assess) [facility]([facility] lburt Hearing Conservat ion) OUTPATIENT [id number] Notes Entered by: SERVANDO LINDSAY 20 Oct 2015 1440 ------- ------- ------- ------- -- Audiogr am ANAMARIA LINDSAY 10/19 Released w/o Limitations [employer]([facility] Hearing Conserv ation) [facility] [employer](Anna Marie [facility]urt Dply Hlth Assess) OUTPATIENT [id number] [facility] URSULA SHELTON 12/08 Released w/o Limitations [facility] [employer](H [facility]burt Dply Hlth Assess) [facility]) OUTPATIENT [id number] LULA FOLEY 12/18 Released w/o Limitations [employer]([facility]) [facility](Bas e Operation s Medicine Cell) TELE CONSULT [id number] Notes Entered by: Priscilla JOHNS 26 Jan 2016 1201 ------- ------- ------- ------- -- Edwards /Guard record review ROSA JOHNS 01/25 [employer] [employer](B ase Operati ons Medicin e Cell) [facility]([facility] lburt Hearing Conservat ion) OUTPATIENT [id number] Notes Entered by: Bowen BLANK 28 Jan 2016 1522 ------- ------- ------- ------- -- audiogr APOORVA Díaz 01/27 Released w/o Limitations [employer]([facility] Hearing Conserv ation) [employer](Bas e Operation s Medicine Cell) OUTPATIENT [id number] CHINO MEIER 02/25 Released w/o Limitations [employer](B ase Operati ons Medicin e Cell) [employer]([facility]) OUTPATIENT [id number] Notes Entered by: JULES DOBBINS 27 Feb 2016 0917 ------- ------- ------- ------- -- Lab results I_JEOVANNY VELARDE 02/26 Released w/o Limitations [employer](H [facility] Flight Medicin e) [employer]([facility]) TELE CONSULT [id number] Notes Entered by: FAUSTO BAUTISTA 03 Mar 2016 0838 ------- ------- ------- ------- -- Lab results JEOVANNY CARPIO 03/03 [employer] [employer] [facility] Flight Medicin e) [employer](Sub stance Abuse ([facility])) OUTPATIENT [id number] MARIAELENA pineda records review KADY PINO 12/29 Released w/o Limitations [employer](S ubstanc e Abuse ([facility]) ) [facility] [place] [address](AFN G 133 Med Sq-FM) OUTPATIENT [id number] Notes Entered by: NORA KRUEGER 28 Jun 2018 1218 ------- ------- ------- ------- -- LEFTY Jacinto 06/28 Released w/o Limitations [facility] [place] [address](A FNG 133 Med Sq-FM) [facility] [place] [address](AFN G 133 Med Sq-FM) OUTPATIENT [id number] Notes Entered by: DU FERNANDES 10 Jan 2019 0753 ------- ------- ------- ------- -- DHA1 CHAD LEI Ayala 01/10 Released w/o Limitations [facility] [place] [address](A FNG 133 Med Sq-FM) Theater Facility OUTPATIENT [id number] Theater Provider 06/24 Released w/o Limitations [facility]ilit [facility] [place] [address](AFN G 133 Med Sq-FM) OUTPATIENT [id number] Notes Entered by: YOLANDE VEGA 06 Sep 2019 1031 ------- ------- ------- ------- -- Paul COLEMAN CHAD LEI Ayala 09/05 Released w/o Limitations [facility] [place] [address](A FNG 133 Med Sq-FM) [facility] [place] [address](AFN G 133 Med Sq-FM) OUTPATIENT [id number] Notes Entered by: DU FERNANDES 27 Nov 2019 1532 ------- ------- ------- ------- -- [facility], NOVEMBER 18 DO CHAD Cai 11/26 Released w/o Limitations [facility] [place] [address](A FNG 133 Med Sq-FM) [facility] Group(Aud iology (Area B)) OUTPATIENT [id number] Notes Entered by: PHILIPPE HDZ 19 Jun 2020 1347 ------- ------- ------- ------- -- [facility] Record Review VISHAL SUH 06/19 Released w/o Limitations [facility](A udiolog y (Area B)) [facility] [place] [address](AFN G 133 Med Sq-FM) OUTPATIENT [id number] Notes Entered by: PATTY RICH 28 Jul 2021 0915 ------- ------- ------- ------- -- Tri-Ser vice COLEMAN NOEL TOLLIVER Harjinder 07/28 Released w/o Limitations [facility] [place] [address](A FNG 133 Med Sq-FM) Procedures Combined list of: 1) Procedures from Department of Veterans Affairs facilities going back up to [facility] 18 months, not all VA non-surgical procedures are included; 2) All procedures from the Department of Defense facilities. Procedure Procedure Type Code Date Perfomer Comments Sourc e No data available for this section Ambulato ry Pharmacy Psychiatric Evaluation Review of Records and Reports Psychiatric Evaluation Review of Records and Reports [id number] KADY PINO [facility] Non-Physician Phone Call To Patient/Provider Brief (5-10min) Non-Physician Phone Call To Patient/Provider Brief (5-10min) [id number] JEOVANNY ARNETT DoD Psychometric Neuropsych Testing Battery Admin By Computer Psychometric Neuropsych Testing Battery Admin By Computer [id number] LULA RON DoD Psychiatric Evaluation Review of Records and Reports Psychiatric Evaluation Review of Records and Reports [id number] LILIANA AWAD DoD Psychometric Neuropsych Testing Battery Admin By Computer Psychometric Neuropsych Testing Battery Admin By Computer 81406 5 ACACIA IYER [facility] Disease management program; initial a e ment and initiation of the program 4 ANASTASIA CASTRO DoD Psychiatric Evaluation Psychiatric Evaluation 48343 4 CHRISTOPHER LENNON [facility] Psychologic Testing And Report Administered By Computer Psychologic Testing And Report Administered By Computer [id number] 4 CHRISTOPHER LENNON [facility] Social History Combined list of available smoking, [...] of Defense and Veterans Affairs (VA).VA Functional [place] Measurement (FIM) Scale: 1 = Total Assistance (Subject = 0% +), 2 = Maximal Assistance (Subject = 25% +), 3 = Moderate Assistance (Subject = 50% +), 4 = Minimal Assistance (Subject = 75% +), 5 = Supervision, 6 = Modified [place] (Device), 7 = Complete [place] (Timely, Safely). Assessment Date/Time Source Assessment Type Assessment Skill Assessment Score Assessment Details No data available for this section
--- OUTSIDE RECORDS SUMMARY | 2024-12-09 19:10 | XMS_ITS | Patient Health Record ---
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
--- OUTSIDE RECORDS SUMMARY | 2024-12-09 19:10 | XMS_ITS | Clinical Summary ---
Author Organization [place] Address [address] [place] [address] Care Team Providers Care City Route Driver Name Role Phone Elsy Ortega MD Primary Care Provider [phone] Allergies Active Allergy Reactions Criticality Noted Date Comments Penicillins 04/22/2023 Medications No known medications Social History Tobacco Use Types Packs/Day Years Used Date Smoking Tobacco: Never Assessed Adolescent Education Answer Date Record ed Getting School Help Needed Not on file 04/22 Sex and Gender Information Value Date Recorded Sex Assigned at Not on file Legal Sex Male 4:11 AM RESEARCH ADMINISTRATOR Gender Identity Not on file Sexual Orientation Not on file Last Filed Vital Signs Vital Sign Reading Time Taken Comments Blood Pressure 137/83 04/22/2023 10:50 AM RESEARCH ADMINISTRATOR Pulse 61 04/22/2023 10:50 AM RESEARCH ADMINISTRATOR Temperature 36.3 C (97.4 F) 04/22/2023 10:50 AM RESEARCH ADMINISTRATOR Respiratory Rate - - Oxygen Saturation 98% 04/22/2023 10:50 AM RESEARCH ADMINISTRATOR Inhaled Oxygen Concentration - - Weight 106.1 kg (234 lb) 04/22/2023 10:50 AM RESEARCH ADMINISTRATOR Height - - Body Mass Index - - Plan of Treatment Health Maintenance Due Date Last Done Comments ADVANCE CARE PLANNING 1994 ANNUAL REVIEW OF HM ORDERS 1994 YEARLY PREVENTIVE VISIT 1997 HIV SCREENING 2009 HEPATITIS C SCREENING 2012 DTAP/TDAP/TD VACCINE (8 - Td or Tdap) 03/01/2023 03/01/2013, 08/15/2006, 10/09/1999, Additional history exists COVID-19 VACCINE ( season) 2024 10/25/2020, 08/17/2020 PHQ-2 (once per calendar year) 2024 INFLUENZA VACCINE (#1) 2024 , 02/24/2020, 02/24/2020, Additional history exists ZOSTER VACCINE (1 of 2) 2044 MENINGITIS VACCINE Completed 03/01/2013 HEPATITIS B VACCINE Completed 10/17/2013, 04/23/2013, 03/07/2013, Additional history exists HPV VACCINE (No Doses Required) Completed PNEUMOCOCCAL VACCINE: PEDIATRICS (0 to 5 YEARS) AND AT-RISK PATIENTS (6 to 49 YEARS) Aged Out No longer eligible based on patient's age to complete this topic Insurance Care Teams City Route Driver Relationship Specialty Start Date End Date Elsy Ortega MD [facility] [address], [place] [address] PCP - General Family Medicine 04/22/23
[2024-12-09 19:14] VITALS: BP 160/77; PULSE 83; RESP 18; TEMP 37.1; O2SAT 98; BMI 27.9
--- NOTE | 2024-12-09 19:24 | ED_ITS ---
HPI - General Adult General Chief complaint: Allergic Reaction Stated complaint: allergic reaction to bee Time Seen by Provider: 12/09/24 19:19 History of Present Illness HPI narrative: This 29-year-old male comes in with report of a bee sting in the inner aspect of his right upper extremity just above his elbow. This bee sting occurred yesterday and he states that the erythema has worsened over the past day. He does not report any shortness of breath or signs of angioedema or anaphylaxis. He does have significant erythema around the site where the bee stung him. The diameter of this area is approximately 20 cm. Related Data Previous Rx's ?Medication ?Instructions ?Recorded benzonatate 200 mg capsule 200 mg PO BID-TID PRN cough #30 06/19/24 caps Allergies Allergy/AdvReac Type Severity Reaction Status Date / Time Penicillins Allergy Verified 12/09/24 19:18 Review of Systems Status of ROS: Reports: 10 or more systems reviewed and unremarkable except as noted in History and below Narrative: Constitutional: No fevers, no weight gain or loss. Eyes: No discharge. No vision changes. HENT: No congestion, no sore throat, no ear pain. Cardiovascular: No chest pain, no palpitations. Respiratory: No shortness of breath, no wheezes, no cough. Gastrointestinal: No abdominal pain, no vomiting, no diarrhea. Genitourinary: No dysuria, no hematuria. Musculoskeletal: Normal range of motion. Skin: No rashes, no pruritis. Bee sting as described above. Neurological: No dizziness, weakness, sensory change, speech change. Endo/Heme/Allergies: No bruising or bleeding. No polydipsia. Pysch: no suicidality, no anxiety, no insomnia. All other systems reviewed and are negative. [facility] Medical History (Updated 12/04/24 @ 16:37 by Severino Fields MD) Family history of melanoma ?Z80.8 - Family history of malignant neoplasm of other organs or systems (ICD-10) Leg mass ?R22.40 - Localized swelling, mass and lump, unspecified lower limb (ICD-10) Family History (Updated 12/07/23 @ 11:09 by Elsy Ortega MD) Father Prostate cancer Melanoma Mother Melanoma Social History (Updated 12/07/23 @ 11:09 by Elsy Ortega MD) Narrative: Exam Narrative: Exam Narrative: Constitutional: Well-developed, well-nourished, no acute distress. HEENT: Normocephalic, atraumatic. Neck: Normal range of motion. Nontender. Supple. Heart: Intact distal pulses. Lungs: No chest discomfort. No wheezes, rhonchi, or rales. Abdomen: Nontender. Back: Normal range of motion. Extremities: Normal range of motion. No injury. Skin: Intact. Bee sting on the right upper extremity in the inner aspect with surrounding erythema and warmth typical of a cellulitis. Neurologic: No altered sensation. No weakness. Alert and oriented. Psychiatric: No suicidality. No anxiety or depression. No insomnia. Nursing notes and vitals signs are reviewed. Const: Vital Signs, click to edit/add: Vital Signs - 24 hr 12/09/24 19:14 Temperature 98.7 F Pulse Rate [Right Pulse Oximeter] 83 Respiratory Rate 18 Blood Pressure [Ri ght Upper Arm] 160/77 H Pulse Oximetry 98 Oxygen Delivery Me thod Room Air Course Vital Signs Vital signs: Initial Vital Signs Temperature 98.7 F 12/09/24 19:14 Temperature Source Temporal Artery Scan 12/09/24 19:14 Pulse Rate 83 12/09/24 19:14 Pulse Rhythm Regular 12/09/24 19:14 Pulse Strength 3+ Normal 12/09/24 19:14 Respiratory Rate 18 12/09/24 19:14 Blood Pressure 160/77 H 12/09/24 19:14 Blood Pressure Mean 104 12/09/24 19:14 Blood Pressure Position Supine 12/09/24 19:14 Pulse Oximetry 98 12/09/24 19:14 Oxygen Delivery Method Room Air 12/09/24 19:14 Vital Signs Temperature 98.7 F 12/09/24 19:14 Pulse Rate 83 12/09/24 19:14 Respiratory Rate 18 12/09/24 19:14 Blood Pressure 160/77 H 12/09/24 19:14 Pulse Oximetry 98 12/09/24 19:14 Oxygen Delivery Method Room Air 12/09/24 19:14 Temperature 98.7 F 12/09/24 19:14 Pulse Rate 83 12/09/24 19:14 Respiratory Rate 18 12/09/24 19:14 Blood Pressure 160/77 H 12/09/24 19:14 Pulse Oximetry 98 12/09/24 19:14 Oxygen Delivery Method Room Air 12/09/24 19:14 Medical Decision Making MDM Narrative Medical decision making narrative: This patient has a bee sting injury to his right upper extremity with significant swelling, warmth, and erythema typical of a secondary infection. The patient has normal vital signs. He is okay to be discharged home and did receive [employer] prescription for Keflex. Discharge Plan Discharge Prescriptions: No Action benzonatate 200 mg capsule 200 mg PO BID-TID PRN (Reason: cough) Qty: 30 0RF Follow Up/Referrals: Elsy Ortega MD [Primary Care Provider, Family Practice]
== END 2024-12-09 19:55 | disposition home or self-care (01) ==
PROVIDERS: Emergency Provider Emergency Medicine Emergency Medical Services; PCP Emergency Medicine
DX: S40.861A Insect bite (nonvenomous) of right upper arm, initial encounter (principal); T63.441A Toxic effect of venom of bees, accidental (unintentional), initial encounter
CPT/HCPCS: 99283; 99284